=== PATIENT | male | born 1995 | race Caucasian/White ===

== ENCOUNTER → 2018-07-01 | Outpatient (REF) ==
[~2018-07-01] MED LIST: ACET1TAB16
== END ==
LOC: M LAB LCGH 14:28
PROVIDERS: ATTEND Surgery
DX: K35.890 Other acute appendicitis without perforation or gangrene (principal)

== ENCOUNTER 2021-03-29 08:03 | Outpatient (RCR) | payer OTHER | END 2021-04-22 | LOC: M OUTALCOH 08:03 | PROVIDERS: ATTEND Psychiatry & Neurology Psychiatry | DX: Z03.89 Encounter for observation for other suspected diseases and conditions ruled out (principal); Z72.0 Tobacco use ==